=== PATIENT | male | born 1975 | race Caucasian/White ===

== ENCOUNTER 2022-01-12 13:35 | Emergency (ER) | payer OTHER ==
[2022-01-12 13:58] VITALS: TEMP 98
[2022-01-12] MEDS ORDERED: RX INFO: IV CONTRAST WAS GIVEN 1 EACH MISC MISCELLANE PRN (13:58)
[2022-01-12 14:23] LABS: Basophils % (A) 0 %; Eosinophils # (A) 0.1 k/uL (0-0.7); Eosinophils % (A) 1 %; HCT 52.5 % (39.0-53.0); HGB 17.7 gm/dL (13.0-17.5); Lymphocytes # (A) 0.8 k/uL (1.0-4.8); Lymphocytes % (A) 10 %; MCHC 33.8 g/dL (31.0-37.0); MCV 94.9 fL (80.0-100.0); Mean Platelet Volume 7.9; Monocytes # (A) 0.4 k/uL (0-1.0); Monocytes % (A) 5 %; Neutrophils # (A) 6.8 k/uL (1.3-7.7); Neutrophils % (A) 84 %; Platelet Count 235 k/uL (150-450); RBC 5.53 m/uL (4.30-5.90); RDW 12.7 % (11.5-15.5); WBC 8.2 k/uL (3.8-10.6)
[2022-01-12 14:34] LABS: INR 0.9 (<1.2)
[2022-01-12 14:35] LABS: Partial Thromboplastin Time 23.2 sec (22.0-30.0); Prothrombin Time 10.2 sec (9.0-12.0)
[2022-01-12 14:39] LABS: ALT 13 U/L (4-49); AST 18 U/L (17-59); African American GFR (CKD) >90 (>60 ml/min/1.73 sqM); Albumin 4.6 g/dL (3.5-5.0); Alkaline Phosphatase 121 U/L (38-126); Anion Gap 8 mmol/L; Blood Urea Nitrogen 16 mg/dL (9-20); Calcium 9.1 mg/dL (8.4-10.2); Carbon Dioxide 23 mmol/L (22-30); Chloride 107 mmol/L (98-107); Glucose 117 mg/dL (74-99); Lipase 176 U/L (23-300); Magnesium 2.2 mg/dL (1.6-2.3); Non-African American GFR(CKD) >90 (>60 ml/min/1.73 sqM); Potassium 4.4 mmol/L (3.5-5.1); Sodium 138 mmol/L (137-145); Total Bilirubin 0.5 mg/dL (0.2-1.3); Total Protein 7.5 g/dL (6.3-8.2)
--- NOTE | 2022-01-12 14:47 | XR ---
EXAMINATION TYPE: XR chest 2V DATE OF EXAM: 01/12/2022 2:20 PM COMPARISON: 06/22/2012 TECHNIQUE: XR chest 2V Frontal and lateral views of the chest. CLINICAL INDICATION:Male, 46 years old with history of Chest Pain; FINDINGS: Lungs/Pleura: There is no evidence of pleural effusion, focal consolidation, or pneumothorax. Pulmonary vascularity: Unremarkable. Heart/mediastinum: Cardiomediastinal silhouette is unremarkable. Musculoskeletal: No acute osseous pathology. IMPRESSION: No acute cardiopulmonary disease/process.
--- NOTE | 2022-01-12 14:52 | CT ---
EXAMINATION TYPE: CT brain wo con CT DLP: 1173.4 mGycm, Automated exposure control for dose reduction was used. DATE OF EXAM: 01/12/2022 2:44 PM COMPARISON: None. CLINICAL INDICATION:Male, 46 years old with history of left facial numbness, left hand numbness, Left facial numbness, left hand numbness TECHNIQUE: Brain: Multiple axial CT images of the brain were obtained without IV contrast. FINDINGS: Brain: Extra-axial spaces: No abnormal extra-axial fluid collections. Ventricular system: Within normal limits, cavum septum pellucidum. Cerebral parenchyma: No acute intraparenchymal hemorrhage or mass effect. The escoto-white junction is well differentiated. Cerebellum: Unremarkable. Mass effect: No evidence of midline shift. Intracranial vasculature: unremarkable Soft tissues: Normal. Calvarium/osseous structures: No depressed skull fracture. Postsurgical changes to the posterior occi put. Paranasal sinuses and mastoid air cells: Mild scattered paranasal sinus disease. Visualized orbits: Orbital contents are intact. IMPRESSION: 1. No acute intracranial process. 2. Postsurgical changes to the occiput.
--- NOTE | 2022-01-12 15:14 | CT ---
EXAMINATION TYPE: CT angio thor/abd pel aorta CT DLP: 1754.2 mGycm, Automated exposure control for dose reduction was used. DATE OF EXAM: 01/12/2022 3:06 PM COMPARISON: None. CLINICAL INDICATION:Male, 46 years old with history of chest pain, left arm/face numbness, r/o dissec tion, Chest pain, left arm/face numbness R/O dissection TECHNIQUE: Dissection protocol: Multiple axial CT images of the chest, abdomen, and pelvis were obtai rian prior and to the administration of IV contrast. 3-D reformats and maximum intensity projection fo rmat were performed on a separate workstation. Then the abdomen was scanned after administration of 8 0 cc of Isovue 370 IV contrast. FINDINGS: ARTERIAL VASCULATURE: The thoracic aorta is normal in course and caliber. There is no evidence of aor tic dissection, aneurysm or acute aortic injury. Great arch vessels patent and normal in course and c aliber. PULMONARY ARTERIAL VASCULATURE: Normal caliber. No evidence of central pulmonary embolus. Suboptimal bolus timing for the remainder of the distal pulmonary arterial vasculature. VENOUS SYSTEM: Unremarkable. Lungs/pleura: The lung parenchyma appears unremarkable. Heart: Within normal limits. Mediastinum: No gross evidence of adenopathy. Lower Neck: No significant findings. Abdomen: Liver: Unremarkable. Gallbladder and Bile ducts: Gallbladder is surgically absent. Pancreas: Unremarkable. Spleen: Unremarkable. Adrenal glands: Unremarkable. 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 No evidence of hydronephrosis. Stomach and Bowel: Bowel wall thickening of the splenic flexure of the colon extending to the sigmoid colon. No evidence of bowel obstruction. Peritoneum: No evidence of pneumoperitoneum, free fluid, or adenopathy. Bladder: Unremarkable. Reproductive: Unremarkable. Abdominal wall/soft tissues: Unremarkable. Musculoskeletal: The osseous structures appear intact. Fixation hardware of L4-L5 and S1. Hardware ap pears intact. IMPRESSION: 1. No evidence for thoracic aortic dissection. 2. Colitis involving the splenic facture to the sigmoid colon.
--- NOTE | 2022-01-12 15:40 | ED ---
Chest Pain HPI - General Chief Complaint: Chest Pain Stated Complaint: Chest pain,abnormal EKG Time Seen by Provider: 01/12/22 13:55 Source: patient Mode of arrival: ambulatory Limitations: no limitations - History of Present Illness Initial Comments: 46-year-old male with past history of Guillain-Guerrero, Chiari malformation presents to the emergency department after he had presyncope. Reports that he was at [employer] when he felt suddenly hot with chest pain. His hands went numb. He leaned up against a wall and slid down the wall because he was so weak. He did not lose consciousness. States that the pain radiated from the epigastric region to his bilateral shoulders and jaw. He had associated diaphoresis and dizziness. EMS evaluated the patient and he received 4 baby aspirins. He completed an EKG. Recommended that he be evaluated at the hospital. Patient wanted to go by private vehicle therefore significant other drove him. He denies previous history of cardiac or pulmonary disease. He also admits to left facial numbness which has persisted. Reports that the chest pain has subsided. No vomiting. No fevers, chills or cough. Has had stress testing however this was 10 years ago. No other alleviating, precipitating or modifying factors. - Related Data Home Medications Medication Instructions Recorded Confirmed Aspirin EC [Ecotrin] 325 mg PO BID 01/12/22 01/12/22 Hydrocortisone [Cortef] 5 mg PO BID@1200,1600 01/12/22 01/12/22 Hydrocortisone [Cortef] 10 mg PO DAILY 01/12/22 01/12/22 Allergies Allergy/AdvReac Type Severity Reaction Status Date / Time SEIZURE MEDICATIONS Allergy Unknown Uncoded 01/12/22 16:03 Review of Systems ROS Statement: Those systems with pertinent positive or pertinent negative responses have been documented in the HPI. ROS Other: All systems not noted in ROS Statement are negative. EKG Findings - EKG Comments: EKG Findings:: EKG demonstrates sinus rhythm with a rate of 90. AK interval 168. QRS 93. QTC of 416. No acute ST segment elevations or depressions. Past Medical History Additional Past Medical History / Comment(s): rekha cortes ate a flu vaccine, chairi malformation, adrenal inufficiency History of Any Multi-Drug Resistant Organisms: None Reported Past Surgical History: Back Surgery, Cholecystectomy Additional Past Surgical History / Comment(s): brain urgery Past Psychological History: No Psychological Hx Reported Smoking Status: Current every day smoker Past Alcohol Use History: None Reported Past Drug Use History: Marijuana General Exam Limitations: no limitations General appearance: alert, in no apparent distress Head exam: Present: atraumatic, normocephalic, normal inspection Eye exam: Present: normal appearance, PERRL, EOMI. Absent: scleral icterus, conjunctival injection, periorbital swelling ENT exam: Present: normal exam, mucous membranes moist Neck exam: Present: normal inspection. Absent: tenderness, meningismus, lymphadenopathy Respiratory exam: Present: normal lung sounds bilaterally. Absent: respiratory distress, wheezes, rales, rhonchi, stridor Cardiovascular Exam: Present: regular rate, normal rhythm, normal heart sounds. Absent: systolic murmur, diastolic murmur, rubs, gallop, clicks GI/Abdominal exam: Present: soft, normal bowel sounds. Absent: distended, tenderness, guarding, rebound, rigid Extremities exam: Present: normal inspection, full ROM, normal capillary refill. Absent: tenderness, pedal edema, joint swelling, calf tenderness Back exam: Present: normal inspection Neurological exam: Present: alert, oriented X3, CN II-XII intact Psychiatric exam: Present: normal affect, normal mood Skin exam: Present: warm, dry, intact, normal color. Absent: rash Course Vital Signs 01/12/22 01/12/22 01/12/22 13:53 15:58 17:00 Temperature 98 F Pulse Rate 90 76 87 Respiratory 18 16 16 Rate Blood Pressure 141/103 122/92 122/81 O2 Sat by Pulse 100 99 98 Oximetry Chest Pain MDM - MDM Upon arrival patient was placed into room 18. A thorough history and physical exam was performed. IV access is established laboratory studies were conducted. Troponin is negative. I did perform a CT of the brain as well as a CT of the thoracic aorta because of his left-sided numbness with chest pain. CT of the brain demonstrates no acute process. There are postsurgical changes at the occiput. CT of the thoracic aorta does not demonstrate any aneurysm or dissection. It does read as colitis involving the splenic flexure however the patient has no abdominal pain, diarrhea or fevers. Results are discussed with the patient. Did recommend admission in order to trend his troponins. Patient wants to go home at this time. Did request that he stay at least for a second troponin for which he did agree to. Second troponin does return and is negative. Patient will be discharged home but strongly encouraged to follow up with his primary care doctor in 2-4 days. He will need full cardiac workup including a stress test and echo. He is to return for any new or worsening symptoms were to the patient did agree to. He is given written and verbal discharge instructions and discharged home in stable condition Disposition Clinical Impression: Chest pain, Pre-syncope Disposition: HOME SELF-CARE Condition: Stable Instructions (If sedation given, give patient instructions): Chest Pain (ED) Additional Instructions: I recommended hospital admission. You must follow-up with the primary care doctor in 2-4 days and have a stress test and echo done of your heart. Please return for any new or worsening symptoms. Is patient prescribed a controlled substance at d/c from ED?: No Referrals: Michelle Quiñones MD [Primary Care Provider] - 1-2 days Time of Disposition: 17:36
[2022-01-12 16:09] VITALS: RESP 16
[2022-01-12 17:10] VITALS: BP 122/81; PULSE 87
== END 2022-01-12 17:41 | disposition home or self-care (01) ==
LOC: EC 13:35
DX: R07.89 Other chest pain (principal); R55 Syncope and collapse; F17.200 Nicotine dependence, unspecified, uncomplicated; Z88.8 Allergy status to other drugs, medicaments and biological substances; Z79.82 Long term (current) use of aspirin
CPT/HCPCS: 36415; 93005; 80053; 83690; 83735; 84484; 85025; 85610; 85730; 71046; 70450; 71275; 74174; 99285; Q9967

== ENCOUNTER 2024-06-05 15:24 | Emergency (ER) | payer MEDICARE ==
[2024-06-05] MEDS: IPRATROPIUM-ALBUTEROL 3 ML NEB INHALATION STA (16:41)
[2024-06-05] MEDS: SODIUM CHLORIDE 0.9% 1,000 ML IV STA (16:42)
[2024-06-05] MEDS: methylPREDNISolone SOD SUCCI 125 MG/2 ML VIAL IV STA (16:42)
--- NOTE | 2024-06-05 16:43 | ED ---
General Adult HPI - General Chief complaint: Chest Pain Stated complaint: pnemonia Time Seen by Provider: 06/05/24 16:11 Source: patient, RN notes reviewed, old records reviewed Mode of arrival: ambulatory Limitations: no limitations - History of Present Illness Initial comments: Patient is a 48-year-old male who presents emergency department complaining of chest tightness, upper respiratory symptoms, as well as generalized bodyaches. States this is how he feels when he has pneumonia. Has had it previously numerous times. Was a previous everyday smoker. No cardiac history. Steroids daily. Symptoms have been ongoing for the last 1 to 2 days. Has had subjective fevers as well. Symptoms seem to have worsened last night. Presents for further evaluation. - Related Data Home Medications Medication Instructions Recorded Confirmed Hydrocortisone [Cortef] 5 mg PO DIRECTED@1200 01/12/22 06/05/24 Hydrocortisone [Cortef] 10 mg PO DIRECTED@0700 01/12/22 06/05/24 Hydrocortisone [Cortef] 2.5 mg PO DIRECTED@1600 06/05/24 06/05/24 QUEtiapine FUMARATE [SEROquel] 25 mg PO HS PRN 06/05/24 06/05/24 busPIRone HCL 5 mg PO TID PRN 06/05/24 06/05/24 Previous Rx's Medication Instructions Recorded Albuterol Inhaler [Ventolin Hfa 1 - 2 puff INHALATION Q6H PRN #1 06/05/24 Inhaler] each Azithromycin [Zithromax] 250 mg PO DAILY 4 Days #4 tab 06/05/24 predniSONE [Deltasone] 40 mg PO DAILY 5 Days #10 tab 06/05/24 Allergies Allergy/AdvReac Type Severity Reaction Status Date / Time SEIZURE MEDICATIONS Allergy Unknown Uncoded 01/12/22 16:03 Review of Systems ROS Statement: Those systems with pertinent positive or pertinent negative responses have been documented in the HPI. Review of Systems: CONST: Denies fever EYES: Denies blurry vision ENT: Endorses cough, nasal congestion C/V: Endorses chest tightness RESP: Denies shortness of breath GI: Denies abdominal pain : Denies dysuria SKIN: Denies rash. MSK: Denies joint pain. NEURO: Denies headache ROS Other: All systems not noted in ROS Statement are negative. Past Medical History Additional Past Medical History / Comment(s): rekha barre ate a flu vaccine, chairi malformation, adrenal inufficiency, pneumonia, polycythemia History of Any Multi-Drug Resistant Organisms: None Reported Past Surgical History: Back Surgery, Cholecystectomy, Orthopedic Surgery Additional Past Surgical History / Comment(s): brain surgery Past Psychological History: No Psychological Hx Reported Smoking Status: Former smoker Past Alcohol Use History: None Reported Past Drug Use History: Marijuana General Exam - General Exam Comments Initial Comments: General: Appears in no acute distress. HEAD: Normal with no signs of head trauma. EYES: PERRLA, EOMI, conjunctiva normal, no discharge. ENT: Hearing grossly intact, normal oropharynx. RESPIRATORY: Clear breath sounds bilaterally. No wheezes, rales, or rhonchi. No significant hypoxia. No increased work of breathing. C/V: Regular rate and rhythm. S1 and S2 auscultated, no edema, peripheral pulses 2+ and intact throughout ABD: Abd is soft, nontender, nondistended EXT: Normal range of motion, no obvious deformity SKIN: No rashes or lesions observed on exposed skin. NEURO: Alert and oriented x 4. 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 sent in by a medical professional or institution (, PA, XEROX MACHINE MECHANIC, urgent care, hospital, or residential...) When possible be specific @ -No Did you speak to anyone other than the patient for history (EMS, parent, family, police, friend...)? What history was obtained from this source @ -No Did you review nursing and triage notes (agree or disagree)? Why? @ -I reviewed and agree with nursing and triage notes Were old charts reviewed (outside hosp., previous admission, EMS record, old EKG, old radiological studies, urgent care reports/EKG's, residential records)? Report findings @ -Old charts reviewed. Includes EKG from December 2021 which revealed no obvious acute finding at that time. When compared with today's EKG, no significant change. Differential Diagnosis (chest pain, altered mental status, abdominal pain women, abdominal pain men, vaginal bleeding, weakness, fever, dyspnea, syncope, headache, dizziness, GI bleed, back pain, seizure, CVA, palpatations, mental health, musculoskeletal)? @ -Pneumonia, COPD, viral syndrome, COVID, flu, RSV. This list is not all inclusive. EKG interpreted by me (3pts min.). @ -As above X-rays interpreted by me (1pt min.). @ -Chest x-ray reveals no obvious acute cardiopulmonary process. CT interpreted by me (1pt min.). @ -None done U/S interpreted by me (1pt. min.). @ -None done What testing was considered but not performed or refused? (CT, X-rays, U/S, lab s)? Why? @ -None What meds were considered but not given or refused? Why? @ -None Did you discuss the management of the patient with other professionals (professionals i.e. , PA, XEROX MACHINE MECHANIC, lab, RT, psych nurse, social media marketing analyst, sleep lab technologist, teacher, coastal/harbor defense officer, rehabilitation caseworker)? Give summary @ -No Was smoking cessation discussed for >3mins.? @ -No Was critical care preformed (if so, how long)? @ -No Were there social determinants of health that impacted care today? How? (Homelessness, low income, unemployed, alcoholism, drug addiction, transportation, low edu. Level, literacy, decrease access to med. care, halfway, rehab)? @ -No Was there de-escalation of care discussed even if they declined (Discuss DNR or withdrawal of care, Hospice)? DNR status @ -No What co-morbidities impacted this encounter? (DM, HTN, Smoking, COPD, CAD, Cancer, CVA, ARF, Chemo, Hep., AIDS, mental health diagnosis, sleep apnea, morbid obesity)? @ -Previous everyday smoker. Was patient admitted / discharged? Hospital course, mention meds given and route, prescriptions, significant lab abnormalities, going to OR and other pertinent info. @ -Patient presents with flulike symptoms. Will obtain viral swabs, as well as basic labs, chest x-ray, screening EKG. He is complaining of some chest tightness with breathing which happens when he has pneumonia. He has bodyaches and other symptoms consistent with it. Vital signs within acceptable limits. Patient be symptomatically treat with IV fluids, DuoNeb, Solu-Medrol. He also received IV Toradol. Patient was in agreement this plan. EKG shows no signs of acute ischemia. Laboratory studies are unremarkable. Viral swabs negative. Chest x-ray unremarkable. On reevaluation, patient feeling improved following breathing treatment. Did discuss that he may have mild undiagnosed COPD. We will treat him for COPD and tracheobronchitis. He was in agreement this plan. I will provide the patient with a prescription for prednisone, albuterol, azithromycin. I instructed the patient to follow up with their PCP in the next 1-3 days. I explained that the patient should return to the emergency department if they experience any worsening symptoms. Strict return precautions were discussed with the patient. The patient expressed understanding of these instructions. I answered all questions that the patient had. The patient was discharged home in [good] condition with their prescriptions and follow up information. Undiagnosed new problem with uncertain prognosis? @ -No Drug Therapy requiring intensive monitoring for toxicity (Heparin, Nitro, Insulin, Cardizem)? @ -No Were any procedures done? @ -No Diagnosis/symptom? @ -COPD, tracheobronchitis Acute, or Chronic, or Acute on Chronic? @ -Acute Uncomplicated (without systemic symptoms) or Complicated (systemic symptoms)? @ -Uncomplicated Side effects of treatment? @ -None Exacerbation, Progression, or Severe Exacerbation] @ -No Poses a threat to life or bodily function? @ -Unlikely - Lab Data Result diagrams: 06/05/24 16:44 06/05/24 16:44 Lab Results 06/05/24 06/05/24 06/05/24 Range/Units 16:44 16:44 17:07 WBC 10.0 (3.8-10.6) k/uL RBC 5.63 (4.30-5.90) m/uL Hgb 17.5 (13.0-17.5) gm/dL Hct 51.6 (39.0-53.0) % MCV 91.7 (80.0-100.0) fL MCH 31.1 (25.0-35.0) pg MCHC 33.9 (31.0-37.0) g/dL RDW 13.3 (11.5-15.5) % Plt Count 214 (150-450) k/uL MPV 7.3 Neutrophils % 77 % Lymphocytes % 9 % Monocytes % 9 % Eosinophils % 2 % Basophils % 0 % Neutrophils # 7.6 (1.3-7.7) k/uL Lymphocytes # 0.9 L (1.0-4.8) k/uL Monocytes # 0.9 (0-1.0) k/uL Eosinophils # 0.2 (0-0.7) k/uL Basophils # 0.0 (0-0.2) k/uL Sodium 136 L (137-145) mmol/L Potassium 4.4 (3.5-5.1) mmol/L Chloride 108 H (98-107) mmol/L Carbon Dioxide 18 L (22-30) mmol/L Anion Gap 10 mmol/L BUN 15 (9-20) mg/dL Creatinine 0.82 (0.66-1.25) mg/dL Est GFR (CKD-EPI)AfAm >90 (>60 ml/min/1.73 sqM) Est GFR (CKD-EPI)NonAf >90 (>60 ml/min/1.73 sqM) Glucose 106 H (74-99) mg/dL Calcium 9.2 (8.4-10.2) mg/dL Magnesium 2.0 (1.6-2.3) mg/dL Total Bilirubin 1.2 (0.2-1.3) mg/dL AST 23 (17-59) U/L ALT 17 (4-49) U/L Alkaline Phosphatase 107 (38-126) U/L Total Protein 7.3 (6.3-8.2) g/dL Albumin 4.5 (3.5-5.0) g/dL Urine Color Urine Appearance (Clear) Urine pH (5.0-8.0) Ur Specific [place] (1.001-1.035) Urine Protein (Negative) Urine Glucose (UA) (Negative) Urine Ketones (Negative) Urine Blood (Negative) Urine Nitrite (Negative) Urine Bilirubin (Negative) Urine Urobilinogen (<2.0) mg/dL Ur Leukocyte Esterase (Negative) Influenza Type A (PCR) Not Detected (Not Detectd) Influenza Type B (PCR) Not Detected (Not Detectd) RSV (PCR) Not Detected (Not Detectd) SARS-CoV-2 (PCR) Not Detected (Not Detectd) 06/05/24 Range/Units 18:16 WBC (3.8-10.6) k/uL RBC (4.30-5.90) m/uL Hgb (13.0-17.5) gm/dL Hct (39.0-53.0) % MCV (80.0-100.0) fL MCH (25.0-35.0) pg MCHC (31.0-37.0) g/dL RDW (11.5-15.5) % Plt Count (150-450) k/uL MPV Neutrophils % % Lymphocytes % % Monocytes % % Eosinophils % % Basophils % % Neutrophils # (1.3-7.7) k/uL Lymphocytes # (1.0-4.8) k/uL Monocytes # (0-1.0) k/uL Eosinophils # (0-0.7) k/uL Basophils # (0-0.2) k/uL Sodium (137-145) mmol/L Potassium (3.5-5.1) mmol/L Chloride (98-107) mmol/L Carbon Dioxide (22-30) mmol/L Anion Gap mmol/L BUN (9-20) mg/dL Creatinine (0.66-1.25) mg/dL Est GFR (CKD-EPI)AfAm (>60 ml/min/1.73 sqM) Est GFR (CKD-EPI)NonAf (>60 ml/min/1.73 sqM) Glucose (74-99) mg/dL Calcium (8.4-10.2) mg/dL Magnesium (1.6-2.3) mg/dL Total Bilirubin (0.2-1.3) mg/dL AST (17-59) U/L ALT (4-49) U/L Alkaline Phosphatase (38-126) U/L Total Protein (6.3-8.2) g/dL Albumin (3.5-5.0) g/dL Urine Color Colorless Urine Appearance Clear (Clear) Urine pH 5.5 (5.0-8.0) Ur Specific [place] 1.011 (1.001-1.035) Urine Protein Negative (Negative) Urine Glucose (UA) Negative (Negative) Urine Ketones Negative (Negative) Urine Blood Negative (Negative) Urine Nitrite Negative (Negative) Urine Bilirubin Negative (Negative) Urine Urobilinogen <2.0 (<2.0) mg/dL Ur Leukocyte Esterase Negative (Negative) Influenza Type A (PCR) (Not Detectd) Influenza Type B (PCR) (Not Detectd) RSV (PCR) (Not Detectd) SARS-CoV-2 (PCR) (Not Detectd) - EKG Data -: EKG Interpreted by Me EKG Comments: 12-lead Electrocardiogram Interpretation Note EKG was reviewed and interpreted by myself. 12-lead ECG performed at 1628 is interpreted by me as revealing normal sinus rhythm at a rate of 89 beats per minute. Left axis deviation. CA interval is 180 ms, QRS duration is 94 ms, QTc is 392 ms.. There were no ST or T wave abnormalities to suggest myocardial ischemia or injury. R wave progression across the precordium was satisfactory. By my interpretation this EKG is non-diagnostic for acute ischemia. Disposition Clinical Impression: COPD (chronic obstructive pulmonary disease), Tracheobronchitis Disposition: HOME SELF-CARE Condition: Good Instructions (If sedation given, give patient instructions): COPD (Chronic Obstructive Pulmonary Disease) (ED), Acute Bronchitis (ED) Prescriptions: predniSONE [Deltasone] 40 mg PO DAILY 5 Days #10 tab Albuterol Inhaler [Ventolin Hfa Inhaler] 1 - 2 puff INHALATION Q6H PRN #1 each PRN Reason: Dyspnea Azithromycin [Zithromax] 250 mg PO DAILY 4 Days #4 tab Is patient prescribed a controlled substance at d/c from ED?: No Referrals: Michelle Quiñones MD [Primary Care Provider] - 1-2 days Time of Disposition: 19:00
[2024-06-05 16:59] LABS: Basophils % (A) 0 %; Eosinophils # (A) 0.2 k/uL (0-0.7); Eosinophils % (A) 2 %; HCT 51.6 % (39.0-53.0); HGB 17.5 gm/dL (13.0-17.5); Lymphocytes # (A) 0.9 k/uL (1.0-4.8); Lymphocytes % (A) 9 %; MCH 31.1 pg (25.0-35.0); MCHC 33.9 g/dL (31.0-37.0); MCV 91.7 fL (80.0-100.0); Mean Platelet Volume 7.3; Monocytes # (A) 0.9 k/uL (0-1.0); Monocytes % (A) 9 %; Neutrophils # (A) 7.6 k/uL (1.3-7.7); Neutrophils % (A) 77 %; Platelet Count 214 k/uL (150-450); RBC 5.63 m/uL (4.30-5.90); RDW 13.3 % (11.5-15.5)
[2024-06-05] MEDS: KETOROLAC 15 MG/ML 1 ML VIAL IVP STA (17:02)
[2024-06-05 17:08] LABS: ALT 17 U/L (4-49); AST 23 U/L (17-59); African American GFR (CKD) >90 (>60 ml/min/1.73 sqM); Albumin 4.5 g/dL (3.5-5.0); Alkaline Phosphatase 107 U/L (38-126); Anion Gap 10 mmol/L; Blood Urea Nitrogen 15 mg/dL (9-20); Calcium 9.2 mg/dL (8.4-10.2); Carbon Dioxide 18 mmol/L (22-30); Chloride 108 mmol/L (98-107); Glucose 106 mg/dL (74-99); Non-African American GFR(CKD) >90 (>60 ml/min/1.73 sqM); Potassium 4.4 mmol/L (3.5-5.1); Sodium 136 mmol/L (137-145); Total Bilirubin 1.2 mg/dL (0.2-1.3); Total Protein 7.3 g/dL (6.3-8.2)
[2024-06-05 18:19] LABS: Appearance,Urine Clear (Clear); Bilirubin,Urine Negative (Negative); Blood,Urine Negative (Negative); Color,Urine Colorless; Glucose,Urine (UA) Negative (Negative); Ketones,Urine Negative (Negative); Leukocyte Esterase,Urine Negative (Negative); Nitrite,Urine Negative (Negative); PH, Urine 5.5 (5.0-8.0); Protein,Urine Negative (Negative); Specific Gravity,Urine 1.011 (1.001-1.035); Urobilinogen,Urine <2.0 mg/dL (<2.0)
[2024-06-05 18:22] VITALS: RESP 17; TEMP 98.4
--- NOTE | 2024-06-05 18:42 | XR ---
EXAMINATION TYPE: XR chest 2V DATE OF EXAM: 06/05/2024 COMPARISON: 01/12/2022 INDICATION: Difficulty breathing short of breath chest pain TECHNIQUE: Frontal and lateral views of the chest are obtained. FINDINGS: The heart size is normal. The pulmonary vasculature is normal. The lungs are clear. IMPRESSION: 1. No acute pulmonary process. [facility], Workstation: [id number], 06/05/2024 6:40 PM
[2024-06-05] MEDS: AZITHROMYCIN 500 MG TAB PO STA (19:18)
[2024-06-05 19:24] VITALS: BP 129/94; PULSE 99
== END 2024-06-05 19:24 | disposition home or self-care (01) ==
LOC: EC 15:24
CPT/HCPCS: 36415; 71046; 80053; 81003; 83735; 85025; 87636; 93005; 94640; 96361; 96374; 96375; 99285

== ENCOUNTER 2024-09-21 13:52 | Emergency (ER) | payer MEDICARE, OTHER ==
[2024-09-21 14:59] LABS: Basophils % (A) 1 %; Eosinophils # (A) 0.1 k/uL (0-0.7); Eosinophils % (A) 2 %; HCT 50.2 % (39.0-53.0); HGB 17.1 gm/dL (13.0-17.5); Lymphocytes # (A) 1.1 k/uL (1.0-4.8); Lymphocytes % (A) 22 %; MCV 91.2 fL (80.0-100.0); Mean Platelet Volume 7.7; Monocytes # (A) 0.6 k/uL (0-1.0); Monocytes % (A) 12 %; Neutrophils # (A) 3.2 k/uL (1.3-7.7); Neutrophils % (A) 61 %; Platelet Count 199 k/uL (150-450); RBC 5.51 m/uL (4.30-5.90); RDW 12.2 % (11.5-15.5); WBC 5.3 k/uL (3.8-10.6)
[2024-09-21 15:02] LABS: ALT 14 U/L (4-49); AST 19 U/L (17-59); African American GFR (CKD) >90 (>60 ml/min/1.73 sqM); Albumin 4.6 g/dL (3.5-5.0); Alcohol <10 mg/dL; Alkaline Phosphatase 91 U/L (38-126); Anion Gap 11 mmol/L; Blood Urea Nitrogen 13 mg/dL (9-20); Calcium 9.6 mg/dL (8.4-10.2); Carbon Dioxide 20 mmol/L (22-30); Chloride 107 mmol/L (98-107); Glucose 102 mg/dL (74-99); Non-African American GFR(CKD) >90 (>60 ml/min/1.73 sqM); Potassium 4.2 mmol/L (3.5-5.1); Sodium 138 mmol/L (137-145); Total Bilirubin 1.2 mg/dL (0.2-1.3)
[2024-09-21 15:11] LABS: Partial Thromboplastin Time 24.4 sec (22.0-30.0); Prothrombin Time 10.9 sec (10.0-12.5)
--- NOTE | 2024-09-21 16:05 | CT ---
EXAMINATION TYPE: CT brain yuki wo con DATE OF EXAM: 09/21/2024 COMPARISON: CT brain dated 01/12/2022 CLINICAL INDICATION: Male, 49 years old with history of trauma; PHH, Struck by tree, left rib/shoulde r pain, posterior. TECHNIQUE: CT scan of the head and cervical spine are performed without contrast. CT DLP: Combined DLP of 3371.[address] CTDI: mGy Automated exposure control for dose reduction was used. Findings: Head CT: Ventricles, basal cisterns and sulci over convexities within normal limits and there is no mass, mass effect or shift of midline structures. No abnormal density is seen throughout the brain parenchyma and there is no acute intra or extra-axia l hemorrhage. Posterior fossa including the brainstem, fourth ventricle and cerebellar pontine angles are grossly n ormal. The intraorbital contents appear normal and symmetric. Visualized paranasal sinuses are well aerated. The calvarium is intact. CT cervical spine: Craniovertebral junction relationships and prevertebral soft tissues are normal. The cervical vertebral segments are normal in height and alignment and there is no fracture subluxati on. There is mild disc space narrowing and spondylosis at C5-C6 indicating mild degenerative disc disease . Facet joints are intact. There is mild degeneration of the uncovertebral joints at C4-5, C5-6 and C6-7. The bony cervical canal is widely patent and there is no bony encroachment of the neural foramina. The paraspinal soft tissues unremarkable. IMPRESSION: 1. Head CT: No acute bleed or mass effect. 2. CT cervical spine: No acute trauma. Mild degenerative changes in the mid-lower cervical spine as d escribed above. [facility], , 09/21/2024 4:03 PM
--- NOTE | 2024-09-21 16:13 | CT ---
EXAMINATION TYPE: CT ChestAbdPelvis w con DATE OF EXAM: 09/21/2024 COMPARISON: None HISTORY: Struck by tree, left rib/shoulder pain, posterior. CT DLP: Combined DLP of 3371.1 mGycm Automated exposure control for dose reduction was used. CONTRAST: CT scan of the chest, abdomen and pelvis is performed without Oral Contrast and with IV Contrast, pat ient injected with 100 ml mL of Isovue 300. FINDINGS: CT chest: There is a focal area of tree-in-bud density in the left upper lobe. There is a 6 mm nodule in the le ft lower lobe. Follow-up CT thorax is recommended in 3 months to confirm stability. There is no airspace consolidation. There is no pleural effusion, pleural thickening or pneumothorax. The great vessels and chest are normal there is no mediastinal, hilar or axillary adenopathy. No focal osseous lesions are seen. CT abdomen and pelvis: There is surgical absence of the gallbladder. There is no biliary ductal dilatation. There is no focal mass or organomegaly involving the liver, pancreas, spleen or adrenal glands.. There is no solid renal mass or hydronephrosis. There is no retroperitoneal adenopathy or hemorrhage in the caliber of the abdominal aorta is normal. The bowel loops are normal in caliber and there is no dilatation or obstruction. No inflammatory moreno ges identified in the bowel wall and mesentery. There is no free intracranial air or fluid. There is no pelvic mass or adenopathy. There is no free fluid within the pelvis. There are postoperative changes of fusion from L4 through S1. There is no acute fracture in the visua lized osseous structures. IMPRESSION: 1. No acute trauma within the chest, abdomen or pelvis 2. focal tree-in-bud densities and 6 mm left lower lobe nodule and CT thorax is recommended in 3 mon ths to confirm stability. [facility], , 09/21/2024 4:10 PM
--- NOTE | 2024-09-21 16:34 | CT ---
CT thoracolumbar spine. HISTORY: Back pain. Trauma, struck by tree. COMPARISON: None. TECHNIQUE: Multiple axial images are obtained through the thoracic and lumbar spine. FINDINGS: There are postsurgical changes of posterior metallic and interbody fusion of L4, L5 and S1. The thoracic and lumbar vertebral segments are normal in height and alignment and there is no fractur e or subluxation. There is mild spondylosis in the lower thoracic spine indicating mild multilevel degenerative disc di sease. The L1-2, L2-3 and L3-4 disc spaces are well preserved in height. There is no bony encroachment of the thoracic or lumbar spinal canal. IMPRESSION: 1. No evidence of acute trauma to the thoracic or lumbar spine. 2. Posterior changes of fusion of L4, L5 and S1. [facility], , 09/21/2024 4:31 PM
--- NOTE | 2024-09-21 16:43 | XR ---
Left shoulder HISTORY: Pain following trauma. COMPARISON: None. TECHNIQUE: 3 views of left shoulder were obtained. FINDINGS: There is no fracture, dislocation, intraosseous, intra-articular soft tissue abnormality. IMPRESSION: No significant abnormality seen. [facility], Workstation: [facility], 09/21/2024 4:41 PM
--- NOTE | 2024-09-21 16:45 | XR ---
Left humerus HISTORY: Pain following trauma. COMPARISON: None TECHNIQUE: 4 views of the left humerus were obtained. FINDINGS: There is no fracture or focal intraosseous abnormality. There is no cortical destruction or periostea l reaction. Soft tissues are unremarkable. IMPRESSION: No significant abnormality seen. [facility], Workstation: [email or web address], 09/21/2024 4:43 PM
[2024-09-21 16:51] VITALS: BP 118/76; PULSE 68; RESP 17; TEMP 98.2
--- NOTE | 2024-09-21 17:14 | ED ---
General Adult HPI - General Chief complaint: Trauma Stated complaint: Tree fell on L side of body Time Seen by Provider: 09/21/24 14:10 Source: patient, RN notes reviewed, old records reviewed Mode of arrival: ambulatory Limitations: no limitations - History of Present Illness Initial comments: Patient is a 49-year-old male who presents emergency department after suffering an injury from a tree. He was cutting down trees yesterday morning. Has been over 24 hours since the incident occurred. Patient states that a tree branch came loose and swung around and struck him. He states he was propelled a few feet away from the tree. Struck him on the back of the left shoulder. Did not lose consciousness. Is endorsing left shoulder pain, neck pain, back pain. Has been ambulatory since. Drove himself here. States pain is worse today which is why presents for further evaluation. Is not on blood thinners. Denies loss conscious. Has no other acute complaints at this time. Presents for further evaluation at this time. - Related Data Home Medications Medication Instructions Recorded Confirmed Hydrocortisone [Cortef] 5 mg PO DIRECTED@1200 01/12/22 06/05/24 Hydrocortisone [Cortef] 10 mg PO DIRECTED@0700 01/12/22 06/05/24 Hydrocortisone [Cortef] 2.5 mg PO DIRECTED@1600 06/05/24 06/05/24 QUEtiapine FUMARATE [SEROquel] 25 mg PO HS PRN 06/05/24 06/05/24 busPIRone HCL 5 mg PO TID PRN 06/05/24 06/05/24 Previous Rx's Medication Instructions Recorded Albuterol Inhaler [Ventolin Hfa 1 - 2 puff INHALATION Q6H PRN #1 06/05/24 Inhaler] each Azithromycin [Zithromax] 250 mg PO DAILY 4 Days #4 tab 06/05/24 predniSONE [Deltasone] 40 mg PO DAILY 5 Days #10 tab 06/05/24 Allergies Allergy/AdvReac Type Severity Reaction Status Date / Time SEIZURE MEDICATIONS Allergy Unknown Uncoded 01/12/22 16:03 Review of Systems ROS Statement: Those systems with pertinent positive or pertinent negative responses have been documented in the HPI. Review of Systems: CONST: Denies fever EYES: Denies blurry vision ENT: Denies nasal congestion C/V: Denies Chest pain RESP: Denies shortness of breath GI: Denies abdominal pain : Denies dysuria SKIN: Denies rash. MSK: Endorses left shoulder pain, back pain. NEURO: Denies headache ROS Other: All systems not noted in ROS Statement are negative. 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 HEAD: Normal with no signs of head trauma. Negative Foster sign. Negative raccoon eyes. EYES: PERRLA, EOMI, conjunctiva normal, no discharge. Pupils are 3 mm and equal bilaterally. ENT: Hearing grossly intact, normal oropharynx. RESPIRATORY: Clear breath sounds bilaterally. No wheezes, rales, or rhonchi. C/V: Regular rate and rhythm. S1 and S2 auscultated, no edema, peripheral pulses 2+ and intact throughout ABD: Abd is soft, nontender, nondistended EXT: Reduced range of motion of the left shoulder secondary to pain. No obvious deformity. Tenderness to palpation throughout the left shoulder as well as mild cervical and thoracic spine. No obvious deformity of the spine. Pelvis is stable. SKIN: No rashes or lesions observed on exposed skin. NEURO: Alert and oriented x 4. Cranial nerves II-XII intact. No focal sensory or strength deficits. GCS of 15. Limitations: no limitations Course Vital Signs 09/21/24 09/21/24 13:53 16:50 Temperature 98.5 F 98.2 F Pulse Rate 70 68 Respiratory 16 17 Rate Blood Pressure 135/84 118/76 O2 Sat by Pulse 97 99 Oximetry Medical Decision Making - Medical Decision Making Was pt. sent in by a medical professional or institution (, PA, DISTRIBUTION SPECIALIST, urgent care, hospital, or [facility]...) When possible be specific @ -No Did you speak to anyone other than the patient for history (EMS, parent, family, police, friend...)? What history was obtained from this source @ -No Did you review nursing and triage notes (agree or disagree)? Why? @ -I reviewed and agree with nursing and triage notes Were old charts reviewed (outside hosp., previous admission, EMS record, old EKG, old radiological studies, urgent care reports/EKG's, [facility] records)? Report findings @ -No old charts were reviewed Differential Diagnosis (chest pain, altered mental status, abdominal pain women, abdominal pain men, vaginal bleeding, weakness, fever, dyspnea, syncope, headache, dizziness, GI bleed, back pain, seizure, CVA, palpatations, mental health, musculoskeletal)? @ -Differential Musculoskeletal Muscular strain, contusion, ligament sprain, fracture, arthritis, septic arthritis, bursitis, cellulitis, muscle spasm, nerve compression, DVT, arterial occlusion, herpes zoster, electrolyte abnormality, tumor.... This is not meant to be in all inclusive list EKG interpreted by me (3pts min.). @ -As above X-rays interpreted by me (1pt min.). @ -Shoulder x-ray, humerus x-ray negative for any obvious traumatic injury. CT interpreted by me (1pt min.). @ -CT brain, spine, chest abdomen pelvis negative for any obvious acute injury. Patient does have some pulmonary nodules in the left lung and recommend follow-up imaging. U/S interpreted by me (1pt. min.). @ -None done What testing was considered but not performed or refused? (CT, X-rays, U/S, labs)? Why? @ -None What meds were considered but not given or refused? Why? @ -None Did you discuss the management of the patient with other professionals (professionals i.e. , PA, DISTRIBUTION SPECIALIST, lab, RT, psych nurse, social worker psychiatric, software performance engineer, teacher, agricultural extension officer, nurse case manager)? Give summary @ -No Was smoking cessation discussed for >3mins.? @ -No Was critical care preformed (if so, how long)? @ -No Were there social determinants of health that impacted care today? How? (Homelessness, low income, unemployed, alcoholism, drug addiction, transportation, low edu. Level, literacy, decrease access to med. care, snf, rehab)? @ -No Was there de-escalation of care discussed even if they declined (Discuss DNR or withdrawal of care, Hospice)? DNR status @ -No What co-morbidities impacted this encounter? (DM, HTN, Smoking, COPD, CAD, Cancer, CVA, ARF, Chemo, Hep., AIDS, mental health diagnosis, sleep apnea, morbid obesity)? @ -None Was patient admitted / discharged? Hospital course, mention meds given and route, prescriptions, significant lab abnormalities, going to OR and other pertinent info. @ -Presents over a day after suffering injuries from a tree striking him in the back. We will obtain CT imaging and x-rays of the left arm. Labs are going to be obtained as well. Vital signs within acceptable limits. EKG shows no signs of acute ischemia. Laboratory studies unremarkable. Imaging negative for any obvious traumatic injury. Patient does have left lung pulmonary nodules. Patient was made aware of the findings on workup including the pulmonary nodules. Recommended he follow-up with his PCP for follow-up imaging in 3 months. He was in agreement this plan. Will be given a sling as well as follow-up with orthopedics at this time. Patient was in agreement this plan. I discussed results with the patient and he will be discharged home. Given starter pack of Tylenol 3. Given a work note. I instructed the patient to follow up with their PCP in the next 1-3 days. I explained that the patient should return to the emergency department if they experience any worsening symptoms. Strict return precautions were discussed with the patient. The patient expressed understanding of these instructions. I a nswered all questions that the patient had. The patient was discharged home in good condition with their prescriptions and follow up information. Undiagnosed new problem with uncertain prognosis? @ -No Drug Therapy requiring intensive monitoring for toxicity (Heparin, Nitro, Insulin, Cardizem)? @ -No Were any procedures done? @ -No Diagnosis/symptom? @ -Left shoulder sprain, pulmonary nodule Acute, or Chronic, or Acute on Chronic? @ -Acute Uncomplicated (without systemic symptoms) or Complicated (systemic symptoms)? @ -uncomplicated Side effects of treatment? @ -No Exacerbation, Progression, or Severe Exacerbation? @ -No Poses a threat to life or bodily function? How? (Chest pain, [place], [place], pneumonia, PE, COPD, DKA, ARF, appy, cholecystitis, CVA, Diverticulitis, Homicidal, Suicidal, threat to staff... and all critical care pts) @ -Unlikely at this time - Lab Data Result diagrams: 09/21/24 14:35 09/21/24 14:35 Lab Results 09/21/24 09/21/24 09/21/24 Range/Units 14:28 14:35 14:35 WBC 5.3 (3.8-10.6) k/uL RBC 5.51 (4.30-5.90) m/uL Hgb 17.1 (13.0-17.5) gm/dL Hct 50.2 (39.0-53.0) % MCV 91.2 (80.0-100.0) fL MCH 31.0 (25.0-35.0) pg MCHC 34.0 (31.0-37.0) g/dL RDW 12.2 (11.5-15.5) % Plt Count 199 (150-450) k/uL MPV 7.7 Neutrophils % 61 % Lymphocytes % 22 % Monocytes % 12 % Eosinophils % 2 % Basophils % 1 % Neutrophils # 3.2 (1.3-7.7) k/uL Lymphocytes # 1.1 (1.0-4.8) k/uL Monocytes # 0.6 (0-1.0) k/uL Eosinophils # 0.1 (0-0.7) k/uL Basophils # 0.0 (0-0.2) k/uL PT 10.9 (10.0-12.5) sec INR 1.0 (<1.2) APTT 24.4 (22.0-30.0) sec Sodium (137-145) mmol/L Potassium (3.5-5.1) mmol/L Chloride (98-107) mmol/L Carbon Dioxide (22-30) mmol/L Anion Gap mmol/L BUN (9-20) mg/dL Creatinine (0.66-1.25) mg/dL Est GFR (CKD-EPI)AfAm (>60 ml/min/1.73 sqM) Est GFR (CKD-EPI)NonAf (>60 ml/min/1.73 sqM) Glucose (74-99) mg/dL Calcium (8.4-10.2) mg/dL Total Bilirubin (0.2-1.3) mg/dL AST (17-59) U/L ALT (4-49) U/L Alkaline Phosphatase (38-126) U/L Total Protein (6.3-8.2) g/dL Albumin (3.5-5.0) g/dL Serum Alcohol mg/dL Blood Type B Positive Blood Type Confirm Blood Type Recheck No Previous Record Bld Type Recheck Status CABO Indicated Antibody Screen NEGATIVE Spec Expiration Date 09/24/2024 - 232709/21/24 09/21/24 Range/Units 14:35 15:04 WBC (3.8-10.6) k/uL RBC (4.30-5.90) m/uL Hgb (13.0-17.5) gm/dL Hct (39.0-53.0) % MCV (80.0-100.0) fL MCH (25.0-35.0) pg MCHC (31.0-37.0) g/dL RDW (11.5-15.5) % Plt Count (150-450) k/uL MPV Neutrophils % % Lymphocytes % % Monocytes % % Eosinophils % % Basophils % % Neutrophils # (1.3-7.7) k/uL Lymphocytes # (1.0-4.8) k/uL Monocytes # (0-1.0) k/uL Eosinophils # (0-0.7) k/uL Basophils # (0-0.2) k/uL PT (10.0-12.5) sec INR (<1.2) APTT (22.0-30.0) sec Sodium 138 (137-145) mmol/L Potassium 4.2 (3.5-5.1) mmol/L Chloride 107 (98-107) mmol/L Carbon Dioxide 20 L (22-30) mmol/L Anion Gap 11 mmol/L BUN 13 (9-20) mg/dL Creatinine 0.86 (0.66-1.25) mg/dL Est GFR (CKD-EPI)AfAm >90 (>60 ml/min/1.73 sqM) Est GFR (CKD-EPI)NonAf >90 (>60 ml/min/1.73 sqM) Glucose 102 H (74-99) mg/dL Calcium 9.6 (8.4-10.2) mg/dL Total Bilirubin 1.2 (0.2-1.3) mg/dL AST 19 (17-59) U/L ALT 14 (4-49) U/L Alkaline Phosphatase 91 (38-126) U/L Total Protein 7.0 (6.3-8.2) g/dL Albumin 4.6 (3.5-5.0) g/dL Serum Alcohol <10 mg/dL Blood Type Blood Type Confirm B Positive Blood Type Recheck Bld Type Recheck Status Antibody Screen Spec Expiration Date - EKG Data -: EKG Interpreted by Me EKG Comments: 12-lead Electrocardiogram Interpretation Note EKG was reviewed and interpreted by myself. 12-lead ECG performed at 1442 is interpreted by me as revealing normal sinus rhythm at a rate of 56 beats per minute. Left axis deviation. FL interval is 198 ms, QRS duration is 101 ms, QTc is 402 ms.. There were no ST or T wave abnormalities to suggest myocardial ischemia or injury. R wave progression across the precordium was satisfactory. By my interpretation this EKG is non-diagnostic for acute ischemia. Disposition Clinical Impression: Sprain of left shoulder, Pulmonary nodule Disposition: HOME SELF-CARE Condition: Good Instructions (If sedation given, give patient instructions): Shoulder Sprain (ED) Is patient prescribed a controlled substance at d/c from ED?: No Referrals: None,Stated [Primary Care Provider] - 1-2 days Jacob Kim MD [STAFF PHYSICIAN] - 1-2 days Forms: Area PCPs Time of Disposition: 17:10
[2024-09-21] MEDS: ACET/COD 300 MG/30 MG STARTER PACK 6 TAB BTL PO STA (17:17)
== END 2024-09-21 17:20 | disposition home or self-care (01) ==
LOC: EC 13:52
DX: S43.402A Unspecified sprain of left shoulder joint, initial encounter (principal); R91.1 Solitary pulmonary nodule; Z87.891 Personal history of nicotine dependence; Z88.8 Allergy status to other drugs, medicaments and biological substances; W22.8XXA Striking against or struck by other objects, initial encounter
CPT/HCPCS: 36415; 93005; 86900; 86901; 80053; 85025; 85610; 85730; 86850; 73030; 73060; 72129; 72125; 72132; 70450; 71260; 74177; 99284; G0480; Q9967; 80320

== ENCOUNTER 2024-10-28 15:14 | Emergency (ER) | payer MEDICARE, OTHER ==
--- NOTE | 2024-10-28 16:21 | ED ---
General Adult HPI - General Chief complaint: Dental/Oral Stated complaint: Dental pain Time Seen by Provider: 10/28/24 15:31 Source: patient, RN notes reviewed Mode of arrival: ambulatory Limitations: no limitations - History of Present Illness Initial comments: 49-year-old male presents emergency department for complaint of dental pain. Patient states that he was evaluated by his dentist on 10/17/2024 daily with concern for a oral infection and was prescribed amoxicillin. States that the pain persisted and again contacted his dentist on 10/26/2024 where he was provided with clindamycin. After completing his full dose of amoxicillin. States he contacted his doctor this morning with a instructed report to emergency department for evaluation of dental pain. Patient states that the pain radiates up into his ear, chills, nausea, vomiting. has been taking ibuprofen at home with some relief. Is scheduled for dental extraction in November. - Related Data Home Medications Medication Instructions Recorded Confirmed Hydrocortisone [Cortef] 5 mg PO DIRECTED@1200 01/12/22 06/05/24 Hydrocortisone [Cortef] 10 mg PO DIRECTED@0700 01/12/22 06/05/24 Hydrocortisone [Cortef] 2.5 mg PO DIRECTED@1600 06/05/24 06/05/24 QUEtiapine FUMARATE [SEROquel] 25 mg PO HS PRN 06/05/24 06/05/24 busPIRone HCL 5 mg PO TID PRN 06/05/24 06/05/24 Previous Rx's Medication Instructions Recorded Albuterol Inhaler [Ventolin Hfa 1 - 2 puff INHALATION Q6H PRN #1 06/05/24 Inhaler] each Azithromycin [Zithromax] 250 mg PO DAILY 4 Days #4 tab 06/05/24 predniSONE [Deltasone] 40 mg PO DAILY 5 Days #10 tab 06/05/24 Acetaminophen [Acetaminophen 8 hr] 650 mg PO Q8H #30 tab 10/28/24 Amoxic-Pot Clav 875-125Mg 1 tab PO Q12HR #20 tab 10/28/24 [Augmentin 875-125] Ibuprofen [Motrin] 800 mg PO Q6HR #30 tab 10/28/24 Allergies Allergy/AdvReac Type Severity Reaction Status Date / Time SEIZURE MEDICATIONS Allergy Unknown Uncoded 10/28/24 15:20 Review of Systems ROS Statement: Those systems with pertinent positive or pertinent negative responses have been documented in the HPI. ROS Other: All systems not noted in ROS Statement are negative. Past Medical History Additional Past Medical History / Comment(s): rekha cortes ate a flu vaccine, chairi malformation, adrenal inufficiency, pneumonia, polycythemia History of Any Multi-Drug Resistant Organisms: None Reported Past Surgical History: Back Surgery, Cholecystectomy, Orthopedic Surgery Additional Past Surgical History / Comment(s): brain surgery Past Psychological History: No Psychological Hx Reported Smoking Status: Former smoker Past Alcohol Use History: None Reported Past Drug Use History: Marijuana General Exam Limitations: no limitations ENT exam: Present: normal exam, mucous membranes moist Expanded Mouth exam: Present: normal external inspection Teeth exam: Present: dental caries, fractured tooth #, dental tenderness #. Absent: normal inspection Throat exam: normal inspection Neck exam: Present: normal inspection. Absent: tenderness, meningismus, lymphadenopathy Respiratory exam: Present: normal lung sounds bilaterally. Absent: respiratory distress, wheezes, rales, rhonchi, stridor Cardiovascular Exam: Present: regular rate, normal rhythm, normal heart sounds. Absent: systolic murmur, diastolic murmur, rubs, gallop, clicks GI/Abdominal exam: Present: soft, normal bowel sounds. Absent: distended, tenderness, guarding, rebound, rigid Extremities exam: Present: normal inspection, full ROM, normal capillary refill. Absent: tenderness, pedal edema, joint swelling, calf tenderness Back exam: Present: normal inspection Course Vital Signs 10/28/24 15:17 Temperature 98.4 F Pulse Rate 73 Respiratory 20 Rate Blood Pressure 127/85 O2 Sat by Pulse 96 Oximetry Medical Decision Making - Medical Decision Making Was pt. sent in by a medical professional or institution (, PA, LEAD HANDLER, urgent care, hospital, or penitentiary...) When possible be specific @ -No Did you speak to anyone other than the patient for history (EMS, parent, family, police, friend...)? What history was obtained from this source @ -No Did you review nursing and triage notes (agree or disagree)? Why? @ -I reviewed and agree with nursing and triage notes Were old charts reviewed (outside hosp., previous admission, EMS record, old EKG, old radiological studies, urgent care reports/EKG's, penitentiary records)? Report findings @ -No old charts were reviewed Differential Diagnosis (chest pain, altered mental status, abdominal pain women, abdominal pain men, vaginal bleeding, weakness, fever, dyspnea, syncope, headache, dizziness, GI bleed, back pain, seizure, CVA, palpatations, mental health, musculoskeletal)? @ -dental pain, dental caries, fractured tooth, dental abscess, pulpitis, this list is not all inclusive EKG interpreted by me (3pts min.). @ -none X-rays interpreted by me (1pt min.). @ -None done CT interpreted by me (1pt min.). @ -None done U/S interpreted by me (1pt. min.). @ -None done What testing was considered but not performed or refused? (CT, X-rays, U/S, labs)? Why? @ -None What meds were considered but not given or refused? Why? @ -None Did you discuss the management of the patient with other professionals (professionals i.e. , PA, LEAD HANDLER, lab, RT, psych nurse, social work coordinator, field nurse, teacher, aviation tactical readiness officer, pillowcase cleaner)? Give summary @ -No Was smoking cessation discussed for >3mins.? @ -No Was critical care preformed (if so, how long)? @ -No Were there social determinants of health that impacted care today? How? (Homelessness, low income, unemployed, alcoholism, drug addiction, transportation, low edu. Level, literacy, decrease access to med. care, skilled nursing, rehab)? @ -No Was there de-escalation of care discussed even if they declined (Discuss DNR or withdrawal of care, Hospice)? DNR status @ -No What co-morbidities impacted this encounter? (DM, HTN, Smoking, COPD, CAD, Cancer, CVA, ARF, Chemo, Hep., AIDS, mental health diagnosis, sleep apnea, morbid obesity)? @ -None Was patient admitted / discharged? Hospital course, mention meds given and route, prescriptions, significant lab abnormalities, going to OR and other per tinent info. @ -Discharge. 49-year-old male presents emergency room with dental pain. Noted to have overall poor dentition with multiple fractured teeth and dental caries. There is point tenderness over. Vitals are stable. He is provided with outpatient prescription for Augmentin in addition to ibuprofen and Tylenol instructed to follow-up as scheduled with dentist. Discussed with Dr. Montenegro Undiagnosed new problem with uncertain prognosis? @ -No Drug Therapy requiring intensive monitoring for toxicity (Heparin, Nitro, Insulin, Cardizem)? @ -No Were any procedures done? @ -No Diagnosis/symptom? @ -fractured tooth, dental carries Acute, or Chronic, or Acute on Chronic? @ -acute Uncomplicated (without systemic symptoms) or Complicated (systemic symptoms)? @ -uncomplicated Side effects of treatment? @ -No Exacerbation, Progression, or Severe Exacerbation? @ -No Poses a threat to life or bodily function? How? (Chest pain, [place], [place], pneumonia, PE, COPD, DKA, ARF, appy, cholecystitis, CVA, Diverticulitis, Homicidal, Suicidal, threat to staff... and all critical care pts) @ -No Disposition Clinical Impression: Fractured tooth, Pain, dental Disposition: HOME SELF-CARE Condition: Good Instructions (If sedation given, give patient instructions): Toothache (ED) Additional Instructions: Please return to the Emergency Department if symptoms worsen or any other concerns. Prescriptions: Acetaminophen [Acetaminophen 8 hr] 650 mg PO Q8H #30 tab Amoxic-Pot Clav 875-125Mg [Augmentin 875-125] 1 tab PO Q12HR #20 tab Ibuprofen [Motrin] 800 mg PO Q6HR #30 tab Is patient prescribed a controlled substance at d/c from ED?: No Referrals: None,Stated [Primary Care Provider] - 1-2 days Time of Disposition: 16:37
[2024-10-28] MEDS: Acetaminophen-Codeine 300-30mg TAB PO STA (16:46)
[2024-10-28 16:51] VITALS: BP 130/82; PULSE 70; RESP 18; TEMP 98.2
== END 2024-10-28 16:50 | disposition home or self-care (01) ==
LOC: EC 15:14
DX: K03.81 Cracked tooth (principal); K02.9 Dental caries, unspecified; Z87.891 Personal history of nicotine dependence
CPT/HCPCS: 99282